=== PATIENT | female | born 2000 | race Caucasian/White ===

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

== ENCOUNTER 2022-06-05 05:08 | Emergency (ER) | payer OTHER ==
[2022-06-05] MEDS ORDERED: ACETAMINOPHEN 1000 MG/100 ML BAG IVPB ONE (05:57)
[2022-06-05] MEDS ORDERED: MAG HYDROX/AL HYDROX/SIMETH 30 ML UNIT-DOSE CUP PO ONE (05:58)
[2022-06-05] MEDS ORDERED: FAMOTIDINE 20 MG/50 ML IVPB 20 MG/50 ML MG IVPB ONE ×2 (05:58→06:02)
[2022-06-05 06:01] VITALS: BP 116/76; TEMP 98.4; BMI 18.5
[2022-06-05] MEDS ORDERED: ACETAMINOPHEN INJECTION 100 ML IVPB ONE (06:02)
[2022-06-05] MEDS ORDERED: MAG HYDROX/AL HYDROX/SIMETH 30 ML UNIT-DOSE CUP ONE (06:02)
[2022-06-05] MEDS ORDERED: SODIUM CHLORIDE 1,000 ML IV STA (06:02)
[2022-06-05] MEDS ORDERED: ONDANSETRON *ODT* 4 MG TABLET SL ONE (06:04)
[2022-06-05] MEDS ORDERED: ONDANSETRON 4 MG/2 ML VIAL IVPB ONE (06:06)
[2022-06-05] MEDS ORDERED: ONDANSETRON 4 MG/2 ML VIAL IVPUSH ONE (06:07)
[2022-06-05] MEDS ORDERED: ONDANSETRON 4 MG/2 ML VIAL ONE (06:17)
[2022-06-05 06:20] LABS: BASO % 0.2 % (0-2.0); EOS % 0.1 % (0-4.5); HEMATOCRIT 38.8 % (32.4-45.2); HEMOGLOBIN 12.6 GM/dL (10.7-15.3); LYMPH % 5.1 % (8-40); MCH 28.7 pg (25.7-33.7); MCHC 32.4 g/dl (32.0-36.0); MEAN CELL VOLUME 88.7 fl (80-96); MEAN PLT VOLUME 9.2 fl (7.5-11.1); MONO % 4.8 % (3.8-10.2); NEUT % 89.8 % (42.8-82.8); PLATELET COUNT 184 10^3/uL (134-434); RBC 4.38 M/mm3 (3.60-5.2); RDW 13.8 % (11.6-15.6); WHITE BLOOD COUNT 15.1 K/mm3 (4.0-10.0)
[2022-06-05 06:39] LABS: CHLORIDE 102 mmol/L (98-107); SODIUM 136 mmol/L (136-145)
[2022-06-05 06:41] LABS: BLOOD UREA NITROGEN 17.3 mg/dL (7-18); CALCIUM 9.1 mg/dL (8.5-10.1); CO2 29 mmol/L (21-32); GLUCOSE,RANDOM 91 mg/dL (74-106); LIPASE 40 U/L (73-393)
[2022-06-05 06:42] LABS: ALBUMIN 3.9 g/dl (3.4-5.0)
[2022-06-05 06:44] LABS: CREATININE 0.6 mg/dL (0.55-1.3); SGOT/AST 33 U/L (15-37); SGPT/ALT 13 U/L (13-61)
[2022-06-05 06:46] LABS: BILIRUBIN,TOTAL 0.6 mg/dL (0.2-1); TOT PROT 7.9 g/dl (6.4-8.2)
[2022-06-05 06:47] LABS: ALK PHOS 62 U/L (45-117)
[2022-06-05 06:56] LABS: ANION GAP 5 MMOL/L (8-16)
[2022-06-05 08:00] LABS: URINE APPEARANCE CLEAR; URINE BILIRUBIN NEGATIVE (NEGATIVE); URINE COLOR YELLOW; URINE GLUCOSE (UA) NEGATIVE (NEGATIVE); URINE KETONE NEGATIVE (NEGATIVE); URINE LEUK ESTERASE NEGATIVE (NEGATIVE); URINE NITRITE NEGATIVE (NEGATIVE); URINE PROTEIN NEGATIVE (NEGATIVE); URINE UROBILINOGEN 0.2 mg/dL (0.2-1.0)
[2022-06-05 08:51] LABS: CALCIUM 8.6 mg/dL (8.5-10.1)
[2022-06-05 08:52] LABS: BLOOD UREA NITROGEN 15.6 mg/dL (7-18)
[2022-06-05 08:55] LABS: CREATININE 0.6 mg/dL (0.55-1.3)
[2022-06-05 11:25] VITALS: PULSE 75; RESP 16
== END 2022-06-05 11:35 | disposition home or self-care (01) ==
LOC: JER 05:08
PROC: 3E033NZ Introduction of Analgesics, Hypnotics, Sedatives into Peripheral Vein, Percutaneous Approach (ICD-10-PCS; principal; 2022-06-05)
PROC: 3E033GC Introduction of Other Therapeutic Substance into Peripheral Vein, Percutaneous Approach (ICD-10-PCS; 2022-06-05)
PROC: 3E033GC Introduction of Other Therapeutic Substance into Peripheral Vein, Percutaneous Approach (ICD-10-PCS; 2022-06-05)
PROC: 3E033GC Introduction of Other Therapeutic Substance into Peripheral Vein, Percutaneous Approach (ICD-10-PCS; 2022-06-05)
PROC: 3E0337Z Introduction of Electrolytic and Water Balance Substance into Peripheral Vein, Percutaneous Approach (ICD-10-PCS; 2022-06-05)
DX: R10.13 Epigastric pain (principal)
CPT/HCPCS: 36415; 76705-TC; 80048; 80053; 81003; 83690; 84703; 85025; 87086; 87186; 93005; 93010; 96361; 96365; 96375; 99284-25

== ENCOUNTER 2023-12-24 17:43 | Emergency (ER) | payer OTHER ==
[2023-12-24 17:50] VITALS: BMI 19.3
[2023-12-24] MEDS ORDERED: ONDANSETRON 4 MG/2 ML VIAL ONE (19:08)
[2023-12-24] MEDS ORDERED: IBUPROFEN 400 MG TABLET (FP) PO ONE (19:08)
[2023-12-24] MEDS: SODIUM CHLORIDE 0.9% 500 ML INFUS.BAG IV ONE (19:26)
[2023-12-24] MEDS: ONDANSETRON 4 MG/2 ML VIAL IVPUSH ONE (19:26)
[2023-12-24] MEDS: IBUPROFEN 400 MG TABLET (FP) PO ONE (19:27)
[2023-12-24] MEDS: ACETAMINOPHEN 1000 MG/100 ML BAG IVPB ONE (19:27)
[2023-12-24] MEDS ORDERED: ACETAMINOPHEN INJECTION 100 ML IVPB ONE (19:30)
[2023-12-24 19:39] LABS: PH,URINE 7.5 (5.0-8.0); URINE APPEARANCE CLEAR; URINE BILIRUBIN NEGATIVE (NEGATIVE); URINE COLOR YELLOW; URINE GLUCOSE (UA) NEGATIVE (NEGATIVE); URINE KETONE 1+ (NEGATIVE); URINE LEUK ESTERASE NEGATIVE (NEGATIVE); URINE NITRITE NEGATIVE (NEGATIVE); URINE PROTEIN NEGATIVE (NEGATIVE)
[2023-12-24 19:40] LABS: BASO % 0.2 % (0-2.0); EOS % 0.1 % (0-4.5); HEMATOCRIT 38.7 % (32.4-45.2); HEMOGLOBIN 12.8 GM/dL (10.7-15.3); LYMPH % 8.3 % (8-40); MCH 29.6 pg (25.7-33.7); MCHC 33.1 g/dl (32.0-36.0); MEAN CELL VOLUME 89.4 fl (80-96); MEAN PLT VOLUME 8.9 fl (7.5-11.1); MONO % 6.3 % (3.8-10.2); NEUT % 85.1 % (42.8-82.8); PLATELET COUNT 187 10^3/uL (134-434); RBC 4.33 M/mm3 (3.60-5.2); RDW 14.1 % (11.6-15.6); WHITE BLOOD COUNT 13.4 K/mm3 (4.0-10.0)
[2023-12-24 19:59] LABS: CALCIUM 9.4 mg/dL (8.5-10.1); POTASSIUM 3.8 mmol/L (3.5-5.1)
[2023-12-24 20:01] LABS: ALBUMIN 4.1 g/dl (3.4-5.0); BLOOD UREA NITROGEN 11.8 mg/dL (7-18)
[2023-12-24 20:03] LABS: CREATININE 0.7 mg/dL (0.55-1.3)
[2023-12-24 20:06] LABS: BILIRUBIN,TOTAL 0.9 mg/dL (0.2-1); TOT PROT 8.2 g/dl (6.4-8.2)
[2023-12-24 20:49] VITALS: TEMP 98
[2023-12-24 21:53] VITALS: BP 116/68; PULSE 96; RESP 16
[2023-12-24] MEDS ORDERED: FLUCONAZOLE 150 MG TABLET PO ONE (22:04)
[2023-12-24] MEDS: FLUCONAZOLE 150 MG TABLET PO ONE (22:06)
[2023-12-24] MEDS ORDERED: DOXYCYCLINE HYCLATE 100 MG CAPSULE PO ONE (22:16)
[2023-12-24] MEDS ORDERED: LIDOCAINE HCL 1%, 10 MG/ML (20ML VIAL) ONE (22:17)
[2023-12-24] MEDS: DOXYCYCLINE HYCLATE 100 MG CAPSULE PO ONE (22:23)
[2023-12-24] MEDS: LIDOCAINE HCL 1%, 10 MG/ML (50 mL VIAL) NR ONE (22:25)
== END 2023-12-24 22:26 | disposition home or self-care (01) ==
LOC: JERFT 17:43 → JER 17:43 → JERFT 22:26
PROC: 3E033NZ Introduction of Analgesics, Hypnotics, Sedatives into Peripheral Vein, Percutaneous Approach (ICD-10-PCS; principal; 2023-12-24)
PROC: 3E033GC Introduction of Other Therapeutic Substance into Peripheral Vein, Percutaneous Approach (ICD-10-PCS; 2023-12-24)
PROC: 3E02329 Introduction of Other Anti-infective into Muscle, Percutaneous Approach (ICD-10-PCS; 2023-12-24)
DX: R50.9 Fever, unspecified (principal); J02.9 Acute pharyngitis, unspecified; R52 Pain, unspecified; R51.9 Headache, unspecified; R11.0 Nausea; R10.13 Epigastric pain; N72 Inflammatory disease of cervix uteri; B37.31 Acute candidiasis of vulva and vagina; J03.90 Acute tonsillitis, unspecified
CPT/HCPCS: 36415; 80053; 81003; 84703; 85025; 87070; 87077; 87086; 87205; 87491; 87591; 87651; 87661; 99284-25; J0131

== ENCOUNTER 2024-02-17 20:34 | Emergency (ER) | payer OTHER ==
[2024-02-17 20:40] VITALS: BP 118/62; PULSE 58; RESP 17; TEMP 98.2; BMI 19.8
[2024-02-17] MEDS ORDERED: ACETAMINOPHEN INJECTION 100 ML IVPB ONE (21:32)
[2024-02-17] MEDS ORDERED: FAMOTIDINE 20 MG/50 ML IVPB 20 MG/50 ML MG IVPB ONE (21:32)
[2024-02-17] MEDS ORDERED: ONDANSETRON 4 MG/2 ML VIAL ONE (21:32)
[2024-02-17 21:38] LABS: BASO % 0.3 % (0-2.0); EOS % 1.2 % (0-4.5); HEMATOCRIT 34.6 % (32.4-45.2); HEMOGLOBIN 11.8 GM/dL (10.7-15.3); LYMPH % 17.8 % (8-40); MCH 30.7 pg (25.7-33.7); MCHC 34.1 g/dl (32.0-36.0); MEAN CELL VOLUME 90.2 fl (80-96); MEAN PLT VOLUME 9.2 fl (7.5-11.1); MONO % 5.7 % (3.8-10.2); PLATELET COUNT 189 10^3/uL (134-434); RBC 3.84 M/mm3 (3.60-5.2); WHITE BLOOD COUNT 6.7 K/mm3 (4.0-10.0)
[2024-02-17] MEDS: ONDANSETRON 4 MG/2 ML VIAL IVPUSH ONE (21:40)
[2024-02-17] MEDS: LACTATED RINGERS SOLUTION 1000 ML INFUS.BAG IV ONE (21:40)
[2024-02-17] MEDS: ACETAMINOPHEN 1000 MG/100 ML BAG IVPB ONE (21:40)
[2024-02-17 21:53] LABS: PH,URINE 8.5 (5.0-8.0); URINE APPEARANCE CLEAR; URINE BILIRUBIN NEGATIVE (NEGATIVE); URINE COLOR YELLOW; URINE GLUCOSE (UA) NEGATIVE (NEGATIVE); URINE KETONE NEGATIVE (NEGATIVE); URINE LEUK ESTERASE NEGATIVE (NEGATIVE); URINE NITRITE NEGATIVE (NEGATIVE); URINE PROTEIN NEGATIVE (NEGATIVE); URINE UROBILINOGEN 0.2 mg/dL (0.2-1.0)
[2024-02-17 21:58] LABS: HCG,QUALITATIVE URINE Negative
[2024-02-17 22:02] LABS: POTASSIUM 3.7 mmol/L (3.5-5.1)
[2024-02-17 22:04] LABS: ALBUMIN 3.9 g/dl (3.4-5.0); BLOOD UREA NITROGEN 13.1 mg/dL (7-18); CALCIUM 9.1 mg/dL (8.5-10.1); MAGNESIUM 1.8 mg/dL (1.8-2.4)
[2024-02-17 22:07] LABS: CREATININE 0.7 mg/dL (0.55-1.3)
[2024-02-17] MEDS: FAMOTIDINE 20 MG/50 ML IVPB 20 MG/50 ML MG IVPB ONE (22:07)
[2024-02-17 22:09] LABS: BILIRUBIN,TOTAL 0.6 mg/dL (0.2-1); TOT PROT 7.6 g/dl (6.4-8.2)
== END 2024-02-17 23:37 | disposition home or self-care (01) ==
LOC: JER 20:34
PROC: 3E033GC Introduction of Other Therapeutic Substance into Peripheral Vein, Percutaneous Approach (ICD-10-PCS; principal; 2024-02-17)
PROC: 3E033GC Introduction of Other Therapeutic Substance into Peripheral Vein, Percutaneous Approach (ICD-10-PCS; 2024-02-17)
PROC: 3E033NZ Introduction of Analgesics, Hypnotics, Sedatives into Peripheral Vein, Percutaneous Approach (ICD-10-PCS; 2024-02-17)
DX: R11.2 Nausea with vomiting, unspecified (principal); R10.13 Epigastric pain; R07.9 Chest pain, unspecified
CPT/HCPCS: 36415; 71275-TC; 80053; 81003; 83690; 83735; 84703; 85025; 85379; 87086; 93005; 93010; 99285-25; J0131; Q9967

== ENCOUNTER 2025-05-22 05:13 | Emergency (ER) | payer OTHER ==
[2025-05-22 05:20] VITALS: RESP 19; TEMP 98.1; BMI 21.7
[2025-05-22] MEDS ORDERED: ACETAMINOPHEN INJECTION 100 ML ONE (05:55)
[2025-05-22] MEDS: ACETAMINOPHEN 1000 MG/100 ML BAG IVPB ONE (06:22)
[2025-05-22 06:54] LABS: EPI CELLS 20 /uL (0-25.1); HYALINE CASTS 1 /uL (0-3.1); URINE APPEARANCE CLEAR; URINE BACTERIA 498 /uL (0-1359); URINE BILIRUBIN NEGATIVE (NEGATIVE); URINE COLOR YELLOW; URINE GLUCOSE (UA) NEGATIVE (NEGATIVE); URINE KETONE TRACE (NEGATIVE); URINE LEUK ESTERASE NEGATIVE (NEGATIVE); URINE NITRITE NEGATIVE (NEGATIVE); URINE PROTEIN NEGATIVE (NEGATIVE); URINE RBC 155 /uL (0-23.9); URINE UROBILINOGEN 0.2 mg/dL (0.2-1.0); URINE WBC 7 /uL (0-25.8)
[2025-05-22 06:55] LABS: ABSOLUTE IMMATURE GRANULOCYTES 0.02 x10^3/uL (0.0-0.031); BASOPHILS # 0.05 x10^3/uL (0.01-0.08); EOSINOPHIL % 0.9 % (0.7-5.8); EOSINOPHILS # 0.06 x10^3/uL (0.04-0.36); MCHC 32.1 g/dl (32.2-35.5); MEAN CELL VOLUME 93.0 fl (79.4-94.8); MEAN PLT VOLUME 10.7 fl (9.4-12.3); MONOCYTE # 0.61 x10^3/uL (0.24-0.86); MONOCYTE % 9.2 % (4.7-12.5); RDW 12.4 % (12.1-16.5)
[2025-05-22 07:09] LABS: INR 1.04 (0.83-1.09); PROTHROMBIN TIME (PATIENT) 11.4 SEC (9.7-13.0)
[2025-05-22 07:10] LABS: GLUCOSE,RANDOM 77.0 mg/dL (74-106)
[2025-05-22 07:11] LABS: TOT PROT 7.5 g/dl (6.4-8.2)
[2025-05-22 07:12] LABS: ACTIVATED PTT 30.3 SECONDS (25.2-36.5); CO2 28.0 mmol/L (21-32)
[2025-05-22 07:13] LABS: ALK PHOS 61.0 U/L (40-150)
[2025-05-22 07:16] LABS: CREATININE 0.79 mg/dL (0.55-1.3); SGOT/AST 22.0 U/L (5-34); SGPT/ALT 13.0 U/L (0-55)
[2025-05-22 07:32] LABS: HCV DIAGNOSTIC IN-HOUSE W/RFLX NON-REACTIVE (NONREACTIVE); HIV INTERPRETATION NEGATIVE (NEGATIVE)
[2025-05-22] MEDS ORDERED: KETOROLAC TROMETHAMINE 15 MG/ML VIAL ONE (08:19)
[2025-05-22] MEDS: KETOROLAC TROMETHAMINE 15 MG/ML VIAL IVPUSH ONE (08:25)
[2025-05-22 11:30] VITALS: BP 98/71; PULSE 60
== END 2025-05-22 11:30 | disposition home or self-care (01) ==
LOC: JER 05:13
PROC: 3E033NZ Introduction of Analgesics, Hypnotics, Sedatives into Peripheral Vein, Percutaneous Approach (ICD-10-PCS; principal; 2025-05-22)
PROC: 3E0333Z Introduction of Anti-inflammatory into Peripheral Vein, Percutaneous Approach (ICD-10-PCS; 2025-05-22)
DX: N83.202 Unspecified ovarian cyst, left side (principal); R10.31 Right lower quadrant pain; R10.32 Left lower quadrant pain; R11.0 Nausea; R35.0 Frequency of micturition; R53.83 Other fatigue; R14.0 Abdominal distension (gaseous); N93.9 Abnormal uterine and vaginal bleeding, unspecified
CPT/HCPCS: 36415; 74177-TC; 76830-TC; 80053; 81003; 83690; 84703; 85025; 85610; 85730; 86803; 86850; 86900; 86901; 87086; 87389; 99285-25